=== PATIENT | female | born 1935 | race Caucasian/White ===

== ENCOUNTER 2021-10-18 08:41 | Day surgery (SDC) | payer OTHER ==
[2021-10-18 09:04] LABS: BASO % 0.4 % (0-2.0); EOS % 0.7 % (0-4.5); LYMPH % 5.7 % (8-40); MCH 35.5 pg (25.7-33.7); MCHC 34.5 g/dl (32.0-36.0); MEAN CELL VOLUME 102.7 fl (80-96); MEAN PLT VOLUME 6.4 fl (7.5-11.1); MONO % 7.3 % (3.8-10.2); NEUT % 85.9 % (42.8-82.8); PLATELET COUNT 142 10^3/uL (134-434); RBC 2.53 M/mm3 (3.60-5.2); RDW 15.5 % (11.6-15.6); WHITE BLOOD COUNT 2.3 K/mm3 (4.0-10.0)
[2021-10-18 09:32] LABS: BLOOD UREA NITROGEN 28.6 mg/dL (7-18); CALCIUM 9.2 mg/dL (8.5-10.1); MAGNESIUM 2.1 mg/dL (1.8-2.4)
[2021-10-18 09:35] LABS: BILIRUBIN,DIRECT 0.2 mg/dL (0.0-0.2); CREATININE 1.1 mg/dL (0.55-1.3); URIC ACID 3.7 mg/dL (2.6-7.2)
[2021-10-18 09:37] LABS: BILIRUBIN,TOTAL 0.4 mg/dL (0.2-1); TOT PROT 6.3 g/dl (6.4-8.2)
[2021-10-18] MEDS ORDERED: DARATUMUMAB-HYALURONIDASE-FIHJ (FASPRO) 15 ML VIAL SQ ONE (10:00)
[2021-10-18] MEDS ORDERED: DENOSUMAB 120 MG/1.7 ML VIAL SQ ONE (10:00)
[2021-10-18 16:51] VITALS: TEMP 98.5
[2021-10-18 16:59] VITALS: BP 115/57; PULSE 81
== END 2021-10-18 11:20 | disposition home or self-care (01) ==
LOC: JONCCHEMO 08:41
PROVIDERS: ATTEND Internal Medicine Hematology & Oncology
PROC: 3E01305 Introduction of Other Antineoplastic into Subcutaneous Tissue, Percutaneous Approach (ICD-10-PCS; principal; 2021-10-18)
PROC: 3E013GC Introduction of Other Therapeutic Substance into Subcutaneous Tissue, Percutaneous Approach (ICD-10-PCS; 2021-10-18)
DX: Z51.11 Encounter for antineoplastic chemotherapy (principal); C90.00 Multiple myeloma not having achieved remission
CPT/HCPCS: 36415; 80048; 80076; 83615; 83735; 84550; 85025; 96372; 96401; J0897; J9144

== ENCOUNTER 2022-11-29 11:22 | Day surgery (SDC) | payer OTHER, BC ==
[2022-11-29] MEDS ORDERED: FUROSEMIDE 40 MG/4 ML INJECTABLE VIAL IVPUSH SCH (12:30)
[2022-11-29 16:59] VITALS: TEMP 97.9
[2022-11-30 01:10] VITALS: BP 116/64; PULSE 106; RESP 19
== END 2022-11-29 22:00 | disposition home or self-care (01) ==
LOC: JONCBLOOD 11:22 → J7W 11:34 → JONCBLOOD 22:00
PROVIDERS: ATTEND Internal Medicine Hematology & Oncology
PROC: 30233H1 Transfusion of Nonautologous Whole Blood into Peripheral Vein, Percutaneous Approach (ICD-10-PCS; principal; 2022-11-29)
DX: C90.00 Multiple myeloma not having achieved remission (principal)
CPT/HCPCS: 36415; 36430; 82607; 82747; 84439; 84443; 85014; 86850; 86900; 86901; 86922; P9058